=== PATIENT | female | born 1990 | race Caucasian/White ===

== ENCOUNTER 2023-09-26 09:20 | Outpatient (CLI) | payer OTHER, SELFPAY | END 2023-09-26 09:21 | disposition home or self-care (01) | LOC: NFLDREF 09:21 | PROVIDERS: Visit Provider Advanced Practice Midwife | DX: O99.322 Drug use complicating pregnancy, second trimester (principal); Z3A.15 15 weeks gestation of pregnancy; Z34.92 Encounter for supervision of normal pregnancy, unspecified, second trimester | CPT/HCPCS: 80306 ==

== ENCOUNTER 2023-10-25 07:06 | Outpatient (CLI) | payer OTHER, SELFPAY ==
--- NOTE | 2023-10-25 07:15 | CRLHL7_ITS ---
For Patients: As a result of the Century Cures Act, medical imaging exams and procedure reports are released immediately into your electronic medical record. You may view this report before your referring provider. If you have questions, please contact your health care provider. INDICATION: Evaluate anatomy. COMPARISON: none TECHNIQUE: Real time hernandez scale imaging of the fetus was performed as well as color Doppler analysis of the umbilical vessels. FINDINGS: Sonographic imaging demonstrates a single living intrauterine gestation. Fetus demonstrates a regular cardiac rate of 139 beats per minute. Fetus has a vertex position. The placenta lies anteriorly without evidence of placenta previa. Edge of the placenta is located 5.4 cm from the internal cervical os. Amniotic fluid volume appears normal. Single deepest vertical pocket: 3.5 cm. The cervix is closed and measures 3.5 cm in length. The composite ultrasound gestational age is calculated at 19 weeks 2 days with an estimated sonographic due date of 03/18/2024. The estimated weight is 294 grams which lies at the 25th %. The following biometric measurements were obtained: Biparietal diameter: 4.4 cm/19 weeks 2 days 26th% Head circumference: 16.5 cm/19 weeks 2 days 16th% Abdominal circumference: 14.2 cm/19 weeks 4 day 35th% Femur length: 3.1 cm/19 weeks 3 days 28th% The HC/AC ratio measures: 1.16 range (1.09-1.26) On anatomic survey, there is a normal appearance of the cerebral ventricles, cavum septi pellucidi, cisterna magna and cerebellum. The nose, lips, and facial profile appear normal. The cervical, thoracic and lumbar spine are well visualized and appear normal. There is a normal four-chamber heart view and the left and right ventricular outflow tracts appear normal. The diaphragm and stomach appear normal. The kidneys and bladder also appear normal. There is a normal three-vessel cord. Abdominal cord insertion not visualized. Four digits are imaged on 1 of the hands. IMPRESSION: Concordance of clinical and sonographic dating. Incomplete visualization of the abdominal cord insertion and incomplete evaluation of the hands. One of the hand views shows 4 digits which could simply be due to technique. Short-term follow-up recommended. Remainder of the anatomic survey normal. Dictated by Christoph Sanchez MD @ 10/25/2023 10:32:03 AM (Electronically Signed)
== END 2023-10-25 07:07 | disposition home or self-care (01) ==
LOC: US 07:07
PROVIDERS: Visit Provider Advanced Practice Midwife
DX: Z34.92 Encounter for supervision of normal pregnancy, unspecified, second trimester (principal); O35.GXX0 Maternal care for other (suspected) fetal abnormality and damage, fetal upper extremities anomalies, not applicable or unspecified; O35.FXX0 Maternal care for other (suspected) fetal abnormality and damage, fetal musculoskeletal anomalies of trunk, not applicable or unspecified; Z3A.19 19 weeks gestation of pregnancy
CPT/HCPCS: 76805

== ENCOUNTER 2023-11-21 09:23 | Outpatient (CLI) | payer OTHER, SELFPAY | END 2023-11-21 09:24 | disposition home or self-care (01) | LOC: NFLDREF 09:23 | PROVIDERS: Visit Provider Advanced Practice Midwife | DX: O99.320 Drug use complicating pregnancy, unspecified trimester (principal); F12.90 Cannabis use, unspecified, uncomplicated; Z3A.23 23 weeks gestation of pregnancy | CPT/HCPCS: 80306 ==

== ENCOUNTER 2023-12-19 11:16 | Outpatient (CLI) | payer OTHER, SELFPAY | END 2023-12-19 11:17 | disposition home or self-care (01) | LOC: NFLDREF 12-22 16:46 | PROVIDERS: Visit Provider Advanced Practice Midwife | DX: Z34.92 Encounter for supervision of normal pregnancy, unspecified, second trimester (principal); Z3A.27 27 weeks gestation of pregnancy | CPT/HCPCS: 86592; 86787 ==

== ENCOUNTER 2024-01-18 09:11 | Outpatient (CLI) | payer OTHER, SELFPAY ==
--- NOTE | 2024-01-18 09:15 | CRLHL7_ITS ---
For Patients: As a result of the Century Cures Act, medical imaging exams and procedure reports are released immediately into your electronic medical record. You may view this report before your referring provider. If you have questions, please contact your health care provider. INDICATION: Follow up on abdominal cord insert and hands. COMPARISON: 08/21/2023 TECHNIQUE: Real time hernandez scale imaging of the fetus was performed as well as color Doppler analysis of the umbilical vessels. FINDINGS: Sonographic imaging demonstrates a single living intrauterine gestation. Fetus demonstrates a regular cardiac rate of 149 beats per minute. Fetus has a vertex position. The placenta lies posterior. Amniotic fluid volume appears normal. Single deepest vertical pocket: 5.3 cm. The composite ultrasound gestational age is calculated at 31 weeks 0 days with an estimated sonographic due date of 03/21/2024. The estimated weight is 1770 grams which lies at the 23rd %. The following biometric measurements were obtained: Biparietal diameter: 7.6 cm/30 weeks 2 days 5th% Head circumference: 28.1 cm/30 weeks 6 days less than 3rd% Abdominal circumference: 28.3 cm/32 weeks 3 days 60th% Femur length: 5.8 cm/30 weeks 3 days 7th% The HC/AC ratio measures: 0.99 range (0.96-1.17) Normal hands. Normal abdominal cord insertion. IMPRESSION: Normal hands and abdominal cord insertion. Sonographic gestational age 31 weeks 0 days and sonographic due date 03/21/2024. Sonographic age 1 week behind the clinical age. Estimated weight is 23rd percentile. Abdominal circumference 60th percentile. BPD 5th percentile, HC less than 3rd percentile. FL is 7th percentile. Dictated by Christoph Sanchez MD @ 01/18/2024 10:56:35 AM (Electronically Signed)
== END 2024-01-18 09:12 | disposition home or self-care (01) ==
LOC: US 09:12
PROVIDERS: PCP Internal Medicine; Visit Provider Advanced Practice Midwife
DX: O35.GXX0 Maternal care for other (suspected) fetal abnormality and damage, fetal upper extremities anomalies, not applicable or unspecified (principal); Z3A.31 31 weeks gestation of pregnancy
CPT/HCPCS: 76816

== ENCOUNTER 2024-01-30 12:14 | Outpatient (CLI) | payer OTHER, SELFPAY | END 2024-01-30 12:15 | disposition home or self-care (01) | LOC: NFLDREF 12:15 | PROVIDERS: PCP Internal Medicine; Visit Provider Advanced Practice Midwife | DX: O99.323 Drug use complicating pregnancy, third trimester (principal); F12.90 Cannabis use, unspecified, uncomplicated; Z3A.33 33 weeks gestation of pregnancy | CPT/HCPCS: 80306 ==

== ENCOUNTER 2024-02-22 15:15 | Outpatient (CLI) | payer OTHER, SELFPAY | END 2024-02-22 15:16 | disposition home or self-care (01) | LOC: NFLDREF 02-23 17:49 | PROVIDERS: PCP Internal Medicine; Referring Provider Internal Medicine; Visit Provider Advanced Practice Midwife | DX: Z34.93 Encounter for supervision of normal pregnancy, unspecified, third trimester (principal); Z3A.37 37 weeks gestation of pregnancy | CPT/HCPCS: 87081; 87653 ==

== ENCOUNTER 2024-03-02 04:37 | Inpatient (IN) | payer OTHER, SELFPAY ==
[2024-03-02] VITALS (66 sets, daily range): BP systolic 100–155; BP diastolic 49–117; PULSE 66–95; RESP 12–16; TEMP 36.3–36.9; O2SAT 94–100; BMI 39.0
[2024-03-02] MEDS: LACTATED RINGERS 1000 ML 1,000 ML 1200 ML IV ×2 (04:50→05:51)
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
[2024-03-02] MEDS: BUPIVACAINE 0.25% PF 10 ML 10 ML ML EPIDURAL (05:39)
[2024-03-02] MEDS: ROPIVACAINE 0.2% 100 ml 100 ML 12 MG EPIDURAL (05:39)
--- NOTE | 2024-03-02 05:51 | PM.ANBPRC ---
[facility] Medical History (Updated 03/02/24 @ 05:28 by Rosy Whitney CNM) ADHD ?F90.9 - Attention-deficit hyperactivity disorder, unspecified type (ICD-10) Marijuana use during ?O99.320 - Drug use complicating , unspecified trimester (ICD-10) ?F12.90 - Cannabis use, unspecified, uncomplicated (ICD-10) History of substance abuse ?F19.11 - Other psychoactive substance abuse, in remission (ICD-10) High risk human papillomavirus (HPV) detected ?R87.810 - Cervical high risk human papillomavirus (HPV) DNA test positive (ICD-10) Positive PETRA (antinuclear antibody) ?R76.8 - Other specified abnormal immunological findings in serum (ICD-10) Myalgia ?M79.10 - Myalgia, unspecified site (ICD-10) PTSD (post-traumatic stress disorder) ?F43.10 - Post-traumatic stress disorder, unspecified (ICD-10) ALEXANDRU (generalized anxiety disorder) ?F41.1 - Generalized anxiety disorder (ICD-10) Autism spectrum disorder ?F84.0 - Autistic disorder (ICD-10) Bipolar disorder, unspecified ?F31.9 - Bipolar disorder, unspecified (ICD-10) Acute depression ?F32.A - Depression, unspecified (ICD-10) Migraine with aura ?G43.109 - Migraine with aura, not intractable, without status migrainosus (ICD-10) HSV-1 (herpes simplex virus 1) infection ?B00.9 - Herpesviral infection, unspecified (ICD-10) Surgical History (Updated 09/26/23 @ 16:12 by Jessica Smith CNM) No significant past surgical history Social History (Updated 10/01/23 @ 13:08 by Jessica Smith CNM) Narrative: SOCIAL Education: Masters Work: Therapist Partner: Since[facility]Willow Lives with: Lives together, he has 2 other sons 1 lives with them some of the time Pets: 1 dog and 1 cat Abuse: Denies past/present Special Diet: Denies Ok with a blood transfusion: yes Culture or latter day beliefs: denies RISK FACTORS Exercise Times/wk: not routinely Depression/Anxiety: Yes, significant mental health Seat Belt Use: Routinely Smoking: Denies present; Hx of smoking, stopped in 2019 Alcohol/day: Denies while Caffeine: Occasional Drug Use: Uses THC daily for nausea; Remote history of Meth use, clean x12 years Ok with UDS today. Aware that if she desires waterbirth she needs a negative UDS in the 3rd trimester. Discussed that THC use is not recommended in . MRSA: Denies What is your current living situation?: I presently have a place to live Problems where you live: no known problems In the past 12 months, utilities in danger of being shut off: no In past 12 months, lack of transportation kept you from medical appts, meetings, work, or getting things needed for daily living: no In the past 12 mos, have been you worried that your food would run out before you had money to buy more?: never true In the past 12 mos, the food you bought just didn't last and you didn't have money to buy more?: never true Smoking Status: Former smoker How often does anyone, including family, friends and others, physically hurt you: never How often does anyone, including family, friends and others, insult or talk down to you: never How often does anyone, including family, friends and others, threaten you with harm: never How often does anyone, including family, friends and others, scream or curse at you: never Meds Home Medications and Allergies Home Medications ?Medication ?Instructions ?Recorded ?Confirmed ?Type cholecalciferol (vitamin D3) 25 25 mcg PO DAILY 09/26/23 02/27/24 History mcg (1,000 unit) tablet doxylamine succinate 25 mg tablet 50 mg PO QHS PRN 09/26/23 02/27/24 History (Unisom (doxylamine)) lamotrigine 50 mg tablet,extended 50 mg PO DAILY 09/26/23 02/27/24 History release 24 hr prazosin 1 mg capsule 1 mg PO QPM 09/26/23 02/27/24 History pyridoxine (vitamin B6) 25 mg 25 mg PO QDAY 09/26/23 02/27/24 History tablet sertraline 100 mg tablet mg PO 09/26/23 02/27/24 History Allergies Allergy/AdvReac Type Severity Reaction Status Date / Time Penicillins Allergy Unknown Hives Verified 02/27/24 10:42 clindamycin Allergy Rash Verified 02/27/24 10:42 Latex, Natural Rubber Allergy Rash Verified 02/27/24 10:42 Sulfa (Sulfonamide Allergy Vomiting Verified 02/27/24 10:42 Antibiotics) Results Vital Signs Vital Signs: Last Vital Signs Pulse 67 03/02/24 05:49 BP 133/67 03/02/24 05:49 Pulse Ox 99 03/02/24 05:32 Weight: 95.254 kg Height: 156.21 cm Anesthesia Procedures Epidural Insertion Patient Location: OB Start Time: :05 Stop Time: 05:45 Start Date: 03/02/24 Stop Date: 03/02/24 Reason for Block: procedure for pain Patient Position: sitting Performed By: Blu Burnett Preanesthetic Checklist: IV checked, risks and benefits discussed, monitors and equipment checked, pre-op evaluation, timeout performed and anesthesia consent Prep: chlorhexidine gluconate Monitoring: blood pressure monitoring, continuous pulse oximetry and heart rate Approach: midline Vertebral Space: lumbar (1-5) Epidural Technique: TULIO saline Needle Type: Tuohy needle Injection Technique: continuous catheter Needle gauge: 17 Needle Length (cm): 10 cm Needle Insertion Depth (cm): 8 Catheter Gauge: 19 Catheter Type: multi-orifice Catheter at skin depth (cm): 14 Test Dose Result: negative and lidocaine 1.5% with epinephrine 1 to 200,000
[2024-03-02 05:53] LABS: Basophils Percent Auto 0.2 % (0.0-3.0); Eosinophils Percent Auto 0.7 % (0.0-7.0); Hematocrit 37.5 % (33.0-51.0); Hemoglobin* 12.5 gm/dL (12.0-16.0); Immature Granulocytes Pct Auto 0.3 %; Lymphocytes Percent Auto 16.8 % (20-44); Mean Corpuscular HGB Conc 33 gm/dL (32-36); Mean Corpuscular Hemoglobin 30 pg (26-34); Mean Corpuscular Volume 91 fL (80-100); Monocytes Percent Auto 7.7 % (0.0-11.0); Neutrophils Percent Auto 74.3 % (42.0-72.0); Platelet Count* 254 K/uL (140-440); RDW Coefficient of Variation % 12.4 % (11.5-15.5); Red Blood Count 4.14 m/uL (4.00-5.20); Slide Review Reflex No
[2024-03-02] MEDS: PHENYLEPHRINE 100 MCG/ML SYRINGE IVP ×2 (05:58→06:06)
[2024-03-02 08:30] LABS: Amphetamine Screen Urine Negative (Negative); Barbiturate Screen Urine Negative (Negative); Benzodiazepines Screen Urine Negative (Negative); Cannabinoid Screen Urine POSITIVE (Negative); Cocaine Screen Urine Negative (Negative); Methadone Screen Urine Negative (Negative); Methamphetamines Screen Urine Negative (Negative); Opiate Screen Urine Negative (Negative); Oxycodone Screen Urine Negative (Negative); Phencyclidine Screen Urine Negative (Negative); Tricyclic Antidepressant Urine Negative (Negative)
--- NOTE | 2024-03-02 08:47 | PM.OBPNL ---
Subjective Date Seen: 03/02/24 Narrative: Luly is a 33 yo here after SROM clear fluid at 0200 this morning with increasing frequency and intensity of contractions starting soon after. She has progressed normally and received her epidural shortly after arriving as requested. She is resting comfortably with [facility] at the bedside. Objective Vital Signs: Last Vital Signs Temp 97.4 F L 03/02/24 07:03 Pulse 72 03/02/24 08:36 BP 129/59 L 03/02/24 08:36 Pulse Ox 99 03/02/24 05:32 Comments: Objective: Constitutional: Alert and oriented x3, no distress, coping well Vital signs stable, see nurse documentation Abdomen: gravid, contractions palpate moderate with contractions and soft between Cervix: Anterior lip/95%/0 station/vertex/LOT, moderate moulding noted NST: 120 bpm/moderate variability/accelerations present/decelerations prolonged x 1, resolved with position change and bolus, audible earlys at 0847 and 0852/moderate contractions q 3-5 min Assessment Assessment: active labor Station: 0 Amniotic Membrane Status: SROM Status: Category ll Heart Rate Baseline: 120 Order Puller Variability: Moderate (6-25) Monitor Accelerations: Present Monitor Decelerations: Prolonged Tracing Comments: see above Plan Plan: ASSESSMENT:?? 33 at 38 2/7 weeks gestation?? complicated by:??Significant mental health struggles with multiple medications, Hx abuse, Hx HSV Labor type: \Spontaneous, Active labor?? Category 2 FHR pattern??? Labor complicated by: none ?? GBS negative/positive? PLAN:?? 1. Routine intrapartum cares as ordered. Continue with expectant management?? 2. Monitoring per policy, continuous 3. Planning unmedicated . Candidate for analgesia of choice.??? 4. Patient encouraged to reposition and ambulate to promote physiologic labor and .?? 5. Plan to have peds at due to current medication use. 6. Anticipate ?
[2024-03-02] MEDS: OXYTOCIN 30 unit/500 ML in NS 30 UNIT/500 ML BAG IVPB (09:44)
--- NOTE | 2024-03-02 10:54 | PM.OBDSVD1 ---
DS: Providers Provider Date Seen: 03/02/24 Date of admission: 03/02/24 04:37 Primary care physician: Celio Arroyo MD Admitting Clinician: Rosy Whitney CNM Consults: 03/02/24 05:09 Consult to Maintenance Technician 2Nd Shift [CONS] Routine Comment: Reason for Consult:: Substance Abuse Screening Attending Physician on discharge: Rosy Whitney CNM Date of Discharge: 03/02/24 DS: Diagnosis Discharge Diagnosis (1) History of herpes genitalis: Status: Acute (2) Acute depression: Status: Acute (3) Autism spectrum disorder: Status: Acute (4) Bipolar disorder, unspecified: Status: Acute (5) ALEXANDRU (generalized anxiety disorder): Status: Acute (6) PTSD (post-traumatic stress disorder): Status: Acute (7) History of substance abuse: Status: Acute Problem details: Meth, sober 12 years (8) Marijuana use during : Status: Acute Problem details: Admitted use at previous site in [facility] (9) ADHD: Status: Acute (10) (normal spontaneous vaginal delivery): Status: Acute (11) care and examination of lactating mother: Status: Acute Exam Const: Vital Signs, click to edit/add: Vital Signs - 24 hr 03/02/24 05:12 03/02/24 05:17 03/02/24 05:22 Temperature Pulse Rate 67 Blood Pressure 155/82 H Pulse Oximetry 100 97 03/02/24 05:27 03/02/24 05:32 03/02/24 05:34 Temperature 97.6 F Pulse Rate Blood Pressure Pulse Oximetry 99 99 03/02/24 05:41 03/02/24 05:43 03/02/24 05:45 Temperature Pulse Rate 77 82 75 Blood Pressure 137/86 136/117 H 137/75 Pulse Oximetry 03/02/24 05:47 03/02/24 05:49 03/02/24 05:51 Temperature Pulse Rate 75 67 89 Blood Pressure 136/77 133/67 126/59 L Pulse Oximetry 03/02/24 05:53 03/02/24 05:55 03/02/24 06:04 Temperature Pulse Rate 71 70 71 Blood Pressure 114/56 L 111/58 L 101/54 L Pulse Oximetry 03/02/24 06:05 03/02/24 06:15 03/02/24 06:17 Temperature Pulse Rate 68 73 72 Blood Pressure 100/53 L 113/70 108/53 L Pulse Oximetry 03/02/24 06:20 03/02/24 06:21 03/02/24 06:23 Temperature Pulse Rate 72 72 75 Blood Pressure 128/58 L 112/49 L 108/57 L Pulse Oximetry 03/02/24 06:32 03/02/24 06:39 03/02/24 06:44 Temperature Pulse Rate 72 71 74 Blood Pressure 124/50 L 107/53 L 115/58 L Pulse Oximetry 03/02/24 06:48 03/02/24 06:54 03/02/24 06:58 Temperature Pulse Rate 76 71 73 Blood Pressure 114/60 106/64 109/63 Pulse Oximetry 03/02/24 07:03 03/02/24 07:03 03/02/24 07:10 Temperature 97.4 F L Pulse Rate 71 72 Blood Pressure 117/62 116/60 Pulse Oximetry 03/02/24 07:13 03/02/24 07:18 03/02/24 07:24 Temperature Pulse Rate 71 70 68 Blood Pressure 116/58 L 112/55 L 113/59 L Pulse Oximetry 03/02/24 07:28 03/02/24 07:34 03/02/24 07:39 Temperature Pulse Rate 71 71 69 Blood Pressure 120/60 132/80 123/76 Pulse Oximetry 03/02/24 07:44 03/02/24 07:49 03/02/24 07:54 Temperature Pulse Rate 75 71 73 Blood Pressure 130/75 128/80 135/80 Pulse Oximetry 03/02/24 07:59 03/02/24 08:04 03/02/24 08:19 Temperature Pulse Rate 68 66 69 Blood Pressure 125/78 135/85 122/59 L Pulse Oximetry 03/02/24 08:36 03/02/24 08:50 03/02/24 09:05 Temperature Pulse Rate 72 67 69 Blood Pressure 129/59 L 115/55 L 125/59 L Pulse Oximetry 03/02/24 09:19 03/02/24 09:34 03/02/24 10:03 Temperature Pulse Rate 69 72 Blood Pressure 116/60 108/54 L Pulse Oximetry 94 03/02/24 10:04 03/02/24 10:09 03/02/24 10:14 Temperature Pulse Rate Blood Pressure Pulse Oximetry 96 96 98 03/02/24 10:19 03/02/24 10:34 03/02/24 10:46 Temperature Pulse Rate 76 86 90 Blood Pressure 117/69 129/67 133/70 Pulse Oximetry 03/02/24 10:49 Temperature Pulse Rate 83 Blood Pressure 133/75 Pulse Oximetry OB - DS: Summary Hospital Course Hospital Course: Patient was admitted for active labor after SROM at 2 am this morning and progressed normally with very little pitocin augmentation in 2nd stage. SROM noted at 0200 with clear fluid. Patient was complete at and pushing at [ ]. of a viable [fe]male at [ ] in [position] [in the tub]. Vertex delivered OA. No nuchal cord or shoulder. Body delivered easily and without incident. Infant passed to mothers abdomen with a vigorous cry. Cord was clamped and cut at > 5 minutes. APGARS were [ ] at one minute and [ ] at five minutes respectively. Mouth was bulb suctioned. Intact placenta with a 3 vessel cord delivered spontaneously at [ ]. Fundus firm. [1st/2nd degree] identified and repaired in typical fashion. QBL [ ] cc. Mother and baby stable; mother plans to breastfeed. Infant weight pending.? ? Time Spent with Patient Time attestation: Total time spent providing and/or coordinating discharge services: Discharge Plan Discharge Date of Admission: 03/02/24 04:37 Attending Physician on Admission: Rosy Whitney Primary Care Provider: Celio Arroyo Discharge Medications: No Action M- Plus 27 mg iron- 1 mg tablet 1 tab PO QDAY Qty: 90 3RF Rx Instructions: give with food (meal/snack)-substitute vitafusion gummies magnesium oxide 420 mg tablet 420 mg PO QDAY Qty: 90 0RF valacyclovir [Valtrex] 500 mg tablet 500 mg PO BID Qty: 90 0RF lamotrigine 50 mg tablet extended release 24hr 50 mg PO DAILY prazosin 1 mg capsule 1 mg PO QPM sertraline 100 mg tablet 100 mg PO DAILY cholecalciferol (vitamin D3) 25 mcg (1,000 unit) tablet 25 mcg PO DAILY pyridoxine (vitamin B6) 25 mg tablet 25 mg PO QDAY Unisom (doxylamine) 25 mg tablet 50 mg PO QHS PRN Follow Up Appointments: Celio Arroyo MD [Primary Care Provider] -
--- NOTE | 2024-03-02 11:10 | W.PM.VAGDE_ITS ---
OB Procedure Vag Delivery Mother Details Mother Details: The patient is a 33 year-old, 4, now Para 1031, admitted on 03/02/24 at 38 weeks 2 Days gestation. Admission Date: 02/24/24 Additional Details Amniotic Membrane Status: SROM Amniotic Membrane Rupture Date: 03/02/24 Amniotic Membrane Rupture Time: 02:00 Amniotic Membrane Fluid Description: Clear Analgesia/Anesthesia Type: Epidural Waterbirth: No Pitcoin: Yes Intrapartal Events: Labor Augmentation Delivery augmentation: pitocin (2nd stage) Labor Onset: 02:00 Complete: 09:46 Pushin:39 Heart: heart tones during second stage were category 2 with deep variables with pushing, moderate variability through out with risking baseline up to 150s possible, but progress toward very productive. Delivery Details Delivery Date: 03/02/24 Delivery Time: 10:42 Route of delivery: Infant Gender: Female Infant Viability: Alive; Heart Rate Present Position at Delivery: OA Delivery Details: Patient was admitted for active labor after SROM at 2 am this morning and progressed normally with very little pitocin augmentation in 2nd stage. SROM noted at 0200 with clear fluid. Patient was complete at 0946 and pushing at 0939. of a viable female at 1042 in OA. Vertex delivered OA. No nuchal cord. shoulder delivered easily, but slowly with restitution. Stomach dystocia noted and moderate traction applied with fingers hooked in armpits. Time from of head to of body was 70 seconds. Excellent tone noted immediately. Infant passed to mothers abdomen with with peds standing at bedside for support. I inquired whether peds wanted the cord clamped and cut at approx 1 min after . They replied yes. APGARS were 6 at one minute and 7 at five minutes respectively. Mouth was bulb suctioned. Intact placenta with a 3 vessel cord delivered spontaneously at 1046 after an initial gush of vaginal bleeding. F undus firm after initial massage. No lacerations found. QBL 200 cc. Mother and baby stable; mother plans to breastfeed. 6#12oz ? 1 Minute Interval Total Score: 6 5 Minute Interval Total Score: 7 Additional Details Shoulder Dystocia: No (Stomach dystocia x 70 sec-see note) Placenta Delivery Time: 10:46 Placental Delivery Description: Spontaneous Procedure Done: Global Blood Loss: 200 Laceration: None Episiotomy Description: None Blood Loss Measurement Type: QBL Bakri Used: No Sponge/Need Count Correct: Yes Cord Vessel Description: 3 Vessels and Clamped/Cut Event Summary Status: Mother and were stable after delivery. Disposition: floor
--- NOTE | 2024-03-02 13:18 | PM.ANPOST ---
Post Anesthesia Note Post Anesthesia Note Patient seen: Inpatient Respiratory Status: adequate Cardiovascular Status: adequate Mental Status: baseline Pain: adequate Temp: baseline Anesthetic awareness: N/A Complications: none Follow care: none
[2024-03-02] MEDS: ACETAMINOPHEN 500 MG TABLET 1000 MG PO (17:16)
[2024-03-02] MEDS: IBUPROFEN 600 MG TABLET PO (21:55)
[2024-03-03] VITALS (7 sets, daily range): BP systolic 111–135; BP diastolic 70–85; PULSE 55–82; RESP 12–17; TEMP 36.3–36.8; O2SAT 97–98
[2024-03-03] MEDS: ACETAMINOPHEN 500 MG TABLET 1000 MG PO ×2 (04:53→16:35)
--- NOTE | 2024-03-03 07:27 | PM.OBPNVD1 ---
OB - PN:Subj Subjective Date Seen: 03/03/24 Patient comments OB post-: no complaints, pain well controlled, tolerating diet and flatus present [place] status: and doing well (Currently on IV abx for possible sepsis. ) [place] feeding status: exclusively Narrative: Luly feels well.? Her pain is well controlled with current medications.? She has no new complaints.? Urinary output is adequate and she is voiding without difficulty.? Has a good appetite, is tolerating a general diet, is passing flatus, and has had a bowel movement without concerns.? Has small amount of rubra lochia.? She is ambulating well.?Encouraged her to work with today. Gestational hypertension based on BP in labor and immediate . Labs drawn today normal. OB - PN: Obj Exam Physical Exam: Vital signs: Temp Pulse Resp BP Pulse Ox O2 Del Method 97.9 F 55 L 12 123/70 97 Room Air 03/03/24 04:43 03/03/24 04:43 03/03/24 04:43 03/03/24 04:43 03/03/24 04:43 03/03/24 04:43 Narrative: GENERAL APPEARANCE:? normal affect, alert, no distress? MOOD:? appropriate? CHEST:? clear to auscultation and percussion? HEART:? regular rate and rhythm? ABDOMEN:? soft, non-tender the uterine fundus is U/1 and is appropriate for the stage of recovery.? PERINEUM:? mild edema of the perineum, there is a intact perineum that is healing well.? EXTREMITIES:? normal and no edema? OB - PN: Obj Data Labs Labs: Laboratory Results - last 24 hr 03/02/24 08:17 Urine Opiates Screen Negative Ur Oxycodone Screen Negative Urine Methadone Screen Negative Ur Barbiturates Screen Negative U Tricyclic Antidepress Negative Ur Phencyclidine Scrn Negative Ur Amphetamines Screen Negative U Methamphetamines Scrn Negative U Benzodiazepines Scrn Negative Urine Cocaine Screen Negative U Marijuana (THC) Screen POSITIVE A Ur Drug Screen Comment See Note OB - PN: A/P Delivery Assessment and Plan (1) History of herpes genitalis: Status: Acute (2) Acute depression: Status: Acute (3) Autism spectrum disorder: Status: Acute (4) Bipolar disorder, unspecified: Status: Acute (5) ALEXANDRU (generalized anxiety disorder): Status: Acute (6) PTSD (post-traumatic stress disorder): Status: Acute (7) History of substance abuse: Problem details: Meth, 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 Status: Acute (9) ADHD: Status: Acute (10) (normal spontaneous vaginal delivery): Status: Acute (11) care and examination of lactating mother: Status: Acute (12) care following vaginal delivery: Status: Acute (13) Gestational hypertension: Status: Acute Plan day: 1 Plan: routine care Comments: Anticipate discharge home tomorrow.
[2024-03-03 08:16] LABS: Hematocrit 31.7 % (33.0-51.0); Hemoglobin* 10.5 gm/dL (12.0-16.0); Mean Corpuscular HGB Conc 33 gm/dL (32-36); Mean Corpuscular Hemoglobin 30 pg (26-34); Mean Corpuscular Volume 91 fL (80-100); Platelet Count* 183 K/uL (140-440); Red Blood Count 3.47 m/uL (4.00-5.20); Slide Review Reflex No; White Blood Count* 13.01 K/uL (4.50-11.00)
[2024-03-03 08:32] LABS: Creatinine* 0.6 mg/dL (0.5-1.5); Est. Creatinine Clearance* 101.58; Estimated Glomerular Filt Rate 122 ml/min
[2024-03-03 08:33] LABS: Alanine Aminotransferase* 19 U/L (4-35); Aspartate Amino Transferase* 25 U/L (12-35); Blood Urea Nitrogen* 14 mg/dL (5-24)
[2024-03-03] MEDS: IBUPROFEN 600 MG TABLET PO (11:26)
--- NOTE | 2024-03-03 15:46 | PC.SOCIAL ---
Addendum entered by SABINO Wren 03/03/24 16:11: Social work consult: Verbal report was made with Gay from [facility] CPS intake. Social work to follow-up as needed. Addendum entered by SABINO Wren 03/03/24 15:56: Social work consult: music worker left a message for pt's nurse today this morning inquiring about follow-up on the referral for the pt. music worker never heard back form pt's nurse. Social work to follow-up as needed. Original Note: Social work consult: music worker completed a CPS report with [facility] for mother admitting to use of THC during and a positive tox screen for THC on 03/02/2024 when pt admitted to the hospital for labor and delivery and baby was born the same day 03/02/2024. Social work to follow-up as needed.
--- NOTE | 2024-03-03 15:50 | PC.CPCO ---
Addendum entered by SABINO Wren 03/03/24 16:12: Social work consult: Verbal CPS report was made with Gay from [facility] CPS intake. Social work to follow-up as needed. Original Note: Social work consult: pest control worker helper completed a CPS report with [facility] for mother admitting to use of THC during and a positive tox screen for THC on 03/02/2024 when pt admitted to the hospital for labor and delivery and baby was born the same day 03/02/2024. Social work to follow-up as needed.
[2024-03-04] MEDS: MAGNESIUM OXIDE 400 MG TABLET PO (00:13)
[2024-03-04 00:39] VITALS: BP 133/80; PULSE 79; RESP 12; TEMP 36.9; O2SAT 96
[2024-03-04] MEDS: ACETAMINOPHEN 500 MG TABLET 1000 MG PO (03:06)
--- NOTE | 2024-03-04 07:23 | P.DS_ITS ---
DS: Providers Provider Date Seen: 03/04/24 Date of admission: 03/02/24 04:37 Primary care physician: Celio Arroyo MD Admitting Clinician: Rosy Whitney CNM Consults: 03/02/24 05:09 Consult to Electromyographic Technician [CONS] Routine Comment: Reason for Consult:: Substance Abuse Screening Attending Physician on discharge: Dori Dawson CNM Date of Discharge: 03/04/24 DS: Diagnosis Discharge Diagnosis (1) Gestational hypertension: Status: Acute (2) care following vaginal delivery: Status: Acute (3) care and examination of lactating mother: Status: Acute (4) (normal spontaneous vaginal delivery): Status: Acute Exam Narrative: Exam Narrative: VSS, afebrile GENERAL APPEARANCE: ?normal affect, alert, no distress MOOD: ?appropriate HEENT: normocephalic, neck supple, full ROM CHEST: ?Symmetrical chest wall movement. ?Normal respiratory effort. ?Clear to auscultation HEART: ?regular rate and rhythm ABDOMEN: ?soft, non-tender. Uterine fundus is firm, U/1 , Midline and is appropriate for the stage of recovery. ?Bowel sounds present. PERINEUM: ?mild edema of the perineum, intact. EXTREMITIES: ?normal and no edema Const: Vital Signs, click to edit/add: Vital Signs - 24 hr 03/03/24 08:36 03/03/24 11:27 03/03/24 14:23 Temperature 97.3 F L 98.3 F Pulse Rate [Pulse Oximeter] 68 61 73 Respiratory Rate 16 17 16 Blood Pressure [Ri ght Arm] 128/78 135/85 111/73 Pulse Oximetry 98 98 Oxygen Delivery Me thod Room Air Room Air 03/03/24 21:00 03/03/24 21:22 03/04/24 00:39 Temperature 98.2 F 98.5 F Pulse Rate [Pulse Oximeter] 82 62 79 Respiratory Rate 16 12 Blood Pressure [Ri ght Arm] 135/85 122/80 133/80 Pulse Oximetry 97 96 Oxygen Delivery Me thod Room Air Room Air Documenting provider has reviewed patient's vital signs: yes OB - DS: Summary Hospital Course Hospital Course: Luly is a 33 y.o. who was admitted to [facility] for labor. ?She had an uncomplicated NVD.?The patient feels well. ?The pain is well controlled with current medications. ?She has no new complaints. ?She is breast feeding and reports things are going well.? the patient has done well.? Vitals have been stable.? She has remained afebrile.? Has a good appetite, is tolerating a general diet. ?She is voiding without difficulty.? She is passing gas and has had a bowel movement.? She is ambulating and denies any dizziness.? Has Small amount of rubra lochia. ?She is planning diaphragm for prevention. Her infant will not be discharged today and she is planning on staying with her after discharge. BP since delivery have been stable. Peripartum Data delivery method: Vaginal Laceration description: None complications: none [place] Gender: Female Discharge Plan: Home Status at Discharge Functional status at discharge: independent ambulation Overall status at discharge: patient is progressing back to baseline Time Spent with Patient Time attestation: Total time spent providing and/or coordinating discharge services: Time spent: Less than 30 minutes Discharge Plan Discharge Disposition: Home, Self-Care Date of Admission: 03/02/24 04:37 Attending Provider on Discharge: Dori Dawson Primary Care Provider: Celio Arroyo Condition: Stable Anticipated Discharge Date/Time: 03/04/24 12:00 Discharge Medications: New acetaminophen 500 mg Tablet 1,000 mg PO Q6H PRNQty: 0 0RF docusate sodium 100 mg Capsule 100 mg PO DAILY Qty: 90 2RF ibuprofen 600 mg Tablet 600 mg PO Q6H PRNQty: 60 0RF Continued M-Cirilo Plus 27 mg iron- 1 mg tablet 1 tab PO QDAY Qty: 90 3RF Rx Instructions: give with food (meal/snack)-substitute vitafusion gummies magnesium oxide 420 mg tablet 420 mg PO QDAY Qty: 90 0RF lamotrigine 50 mg tablet extended release 24hr 50 mg PO DAILY prazosin 1 mg capsule 1 mg PO QPM sertraline 100 mg tablet 100 mg PO DAILY cholecalciferol (vitamin D3) 25 mcg (1,000 unit) tablet 25 mcg PO DAILY pyridoxine (vitamin B6) 25 mg tablet 25 mg PO QDAY Unisom (doxylamine) 25 mg tablet 50 mg PO QHS PRN Discontinued valacyclovir [Valtrex] 500 mg tablet 500 mg PO BID Qty: 90 0RF Discharge Orders: Discharge Order (Routine); Ordered 03/04/24 Ordered By: Dori Dawson Patient Education: OB Over the Counter Medication Information, OB Vaginal/Breast Feeding Additional Instructions: Discharge instructions were reviewed with the patient including signs and symptoms of infection and home going medications Nothing vaginally for 6 weeks: no tampons or intercourse Off Work or School for 6 weeks Symptoms to report to doctor: * Bleeding that saturates more than one pad per hour * Passing clots larger than the size of a golf ball * Pain not relieved by prescribed medication * Fever above 100.4 degrees Fahrenheit * A foul vaginal odor * Difficulty in emotions, mood, and functions * Thoughts of hurting yourself and/or * Painful, reddened area in your breast * Any drainage, redness, or tenderness in your IV/epidural site * Severe headache that doesn't improve after taking medications * Changes in vision, including temporary loss of vision, blurred vision, and/or light sensitivity * Upper abdominal pain (usually under ribs on the right side) * Decrease in urination or painful, frequent urinating * Chest pain * Shortness of breath * Tenderness or pain with redness and/swelling in the calf(s) of your leg [facility] for [facility] BP check?03/06/24 Call with BP greater than or equal to 150/100. 2-week visit: discuss feeding concerns, review control options and screen for anxiety/depression. 6-week visit for an annual exam. consultation services are available to all mothers and babies for the first year after delivery.? To make an appointment, please call [phone]. Activity Level: Activity as Tolerated Discharge Diet: Regular Follow Up Appointments: [facility] [Provider Group] Forms: [employer] Info Instructions
[2024-03-04 08:11] VITALS: BP 127/85; PULSE 65; RESP 16; TEMP 36.8; O2SAT 96
[2024-03-04] MEDS: IBUPROFEN 600 MG TABLET PO (08:16)
--- NOTE | 2024-03-04 12:15 | PC.SOCIAL ---
Discharge planning: mixed crop and livestock farm worker met with pt today before discharge and provided her with resources for [facility] class in [facility] and parenting classes/programs that are offered at [facility]. Pt was thankful for the information. mixed crop and livestock farm worker asked pt about interest in a Public Health Nurse referral and pt shared that she wasn't interested in that at this time. Pt is aware that she can request appointments with the consultants at [facility] as an outpatient if she has further questions and/or concerns with . Social work to follow-up as needed.
[2024-03-04 13:11] LABS: Rapid Plasma Reagin (RPR) Non Reactive (Non Reactive)
== END 2024-03-04 12:30 | disposition home or self-care (01) | DRG 806 ==
LOC: OB OUT 04:37 → OB 04:37
PROVIDERS: Advanced Practice Midwife; Admitting Provider Midwife; PCP Internal Medicine; Visit Provider Midwife
DX: O42.02 Full-term premature rupture of membranes, onset of labor within 24 hours of rupture (principal); F84.0 Autistic disorder; Z37.0 Single live birth; O98.32 Other infections with a predominantly sexual mode of transmission complicating childbirth; O99.324 Drug use complicating childbirth; Z3A.38 38 weeks gestation of pregnancy; O99.344 Other mental disorders complicating childbirth; F41.1 Generalized anxiety disorder; O13.4 Gestational [pregnancy-induced] hypertension without significant proteinuria, complicating childbirth; A60.09 Herpesviral infection of other urogenital tract; F43.10 Post-traumatic stress disorder, unspecified; F90.9 Attention-deficit hyperactivity disorder, unspecified type; O76 Abnormality in fetal heart rate and rhythm complicating labor and delivery; F31.9 Bipolar disorder, unspecified; F12.90 Cannabis use, unspecified, uncomplicated; F19.11 Other psychoactive substance abuse, in remission; F06.31 Mood disorder due to known physiological condition with depressive features
CPT/HCPCS: 01967; 36415; 80306; 82565; 84450; 84460; 84520; 85025; 85027; 86592; 86850; 86900; 86901; A9270; J0665; J2371; J2795; J7120

== ENCOUNTER 2024-10-03 17:12 | Outpatient (CLI) | payer OTHER, SELFPAY ==
[2024-10-03 17:40] LABS: Strep A DNA Probe* NOT DETECTED (Not Detectd)
== END 2024-10-03 17:13 | disposition home or self-care (01) ==
LOC: NFLDUCREF 17:13
PROVIDERS: Visit Provider Physician Assistant Medical
DX: J02.9 Acute pharyngitis, unspecified (principal)
CPT/HCPCS: 87651